=== PATIENT | female | born 1940 | race Caucasian/White ===

== ENCOUNTER 2018-12-12 11:40 | Inpatient (IN) | payer OTHER ==
[~2018-12-12] VITALS: Ht 152.4 cm; Wt 53.5 kg
--- NOTE | 2018-12-12 11:52 | NUR ---
PACIENTE ALERTA Y ORIENTADA EN HEATH NORMAN ESFERAS, PRESENTA REFERIDO DE DR [place] POR PROLAPSO RECTAL, HEMORROIDES KELI 3 Y 4 Y [place] RECTAL.
--- NOTE | 2018-12-12 13:34 | NUR ---
PTE EVALUADA POR LA DRA [place]. MS K GRIMALDO ORIENTA SOBR ELISA EMISMO, LO CUAL REFIERE ENTENDER, REALIZA PRUEBAS DE LABORATORIO Y ADMINISTRA MEDICAMENTO KALYN ORDEN MEDICA Y SIGUIENDO MEDIDAS ASEPTICAS. SE NOTIFICAN ADELINE X. PTE PENDIENTE A CONSULTA CON DR NATION.
[2018-12-16] MEDS ORDERED: ULTRACET PO (14:04)
== END 2018-12-16 14:50 | disposition home or self-care (01) | DRG 327 ==
LOC: ER 11:40 → EDSEX 12:21 → SEC-K 14:43 → SURG 14:43 → MEDI 18:49 → SEC-K 19:10 → SURG 12-13 10:41
PROVIDERS: ADMIT Surgery
PROC: 0DTN0ZZ Resection of Sigmoid Colon, Open Approach (ICD-10-PCS; 2018-12-14)
PROC: 0DTP0ZZ Resection of Rectum, Open Approach (ICD-10-PCS; 2018-12-14)
PROC: 0DJD8ZZ Inspection of Lower Intestinal Tract, Via Natural or Artificial Opening Endoscopic (ICD-10-PCS; 2018-12-14)
PROC: 0FQC8ZZ Repair Ampulla of Vater, Via Natural or Artificial Opening Endoscopic (ICD-10-PCS; principal; 2018-12-14 19:15)
DX: K62.3 Rectal prolapse (principal); K62.5 Hemorrhage of anus and rectum; K57.20 Diverticulitis of large intestine with perforation and abscess without bleeding; R15.9 Full incontinence of feces; K29.00 Acute gastritis without bleeding; C50.812 Malignant neoplasm of overlapping sites of left female breast; I11.9 Hypertensive heart disease without heart failure; Z88.2 Allergy status to sulfonamides; Z88.0 Allergy status to penicillin; Z17.0 Estrogen receptor positive status [ER+]

== ENCOUNTER 2020-05-27 20:52 | Inpatient (IN) | payer OTHER ==
[~2020-05-27] VITALS: Ht 149.9 cm; Wt 45.4 kg
[~2020-05-27 20:52] MED LIST: ULTRACET PO
[2020-05-27] MEDS ORDERED: LIPITOR40 M1 (21:32)
[2020-05-27] MEDS ORDERED: HYDRALAZINE HCL50 MG (21:32)
[2020-05-27] MEDS ORDERED: NORVASC5 MG (21:33)
[2020-05-27] MEDS ORDERED: TRANXENE T-TAB7.5 MG (21:33)
[2020-05-27] MEDS ORDERED: CILOSTAZOL100 MG (21:33)
[2020-05-27] MEDS ORDERED: BUSPIRONE HCL7.5 MG (21:34)
[2020-05-27] MEDS ORDERED: MEMANTINE HCL10 MG (21:34)
[2020-05-27] MEDS ORDERED: TOPROL XL25 M1 (21:34)
[2020-05-27] MEDS ORDERED: CALCIUM + D3 E1 EACH (21:34)
[2020-05-30] MEDS ORDERED: OXYC1TAB9 PO (17:14)
[2020-05-30] MEDS ORDERED: POLY119PG PO (17:14)
== END 2020-05-30 19:57 | disposition home or self-care (01) | DRG 348 ==
LOC: ER 20:52 → SEC-K 21:31 → SURH 21:31
PROVIDERS: ADMIT Surgery; ATTEND Surgery
PROC: 0DBP7ZZ Excision of Rectum, Via Natural or Artificial Opening (ICD-10-PCS; principal; 2020-05-27)
PROC: BW21YZZ Computerized Tomography (CT Scan) of Abdomen and Pelvis using Other Contrast (ICD-10-PCS; 2020-05-27)
DX: K62.3 Rectal prolapse (principal); K62.5 Hemorrhage of anus and rectum; I11.9 Hypertensive heart disease without heart failure; M19.90 Unspecified osteoarthritis, unspecified site; C50.912 Malignant neoplasm of unspecified site of left female breast; Z20.822 Contact with and (suspected) exposure to COVID-19